=== PATIENT | male | born 1955 | race African-American/Black ===

== ENCOUNTER 2021-08-14 17:04 | Inpatient (IN) | payer MEDICARE, OTHER ==
[~2021-08-14] VITALS: Ht 182.9 cm; Wt 89.8 kg
[2021-08-14] MEDS ORDERED: MIDAZOLAM HCL 100 MG in DEXT 5% WATER 80 ML IV ONE (17:30)
[2021-08-14] MEDS ORDERED: SODIUM CHLORIDE 0.9% 1000ML BAG (SEPSIS BOLUS) IV ONE (17:30)
[2021-08-14] MEDS ORDERED: FENTANYL 2500MCG/250ML PMX 250 ML IV ONE ×2 (17:30→18:00)
[2021-08-14] MEDS ORDERED: ETOMIDATE 2MG/ML 10ML VIAL IV ONE (17:30)
[2021-08-14 17:50] LABS: BASOPHILS % 0.2 % (0.0-2.0); EOSINOPHILS % 0.9 % (0.0-5.0); HEMATOCRIT. 38.6 % (42.0-52.0); HEMOGLOBIN. 12.6 g/dL (14.0-18.0); LYMPHOCYTES % 27.8 % (20.0-50.0); MEAN CORPUSCULAR HEMOGLOBIN 32.2 pg (28.0-32.0); MEAN CORPUSCULAR VOLUME 98.5 fL (80.0-94.0); MEAN PLATELET VOLUME 9.2 fl (7.4-10.4); MONOCYTES % 5.9 % (2.0-8.0); NEUTROPHILS % 65.2 % (40.0-76.0); PLATELET 219 x1000/uL (130-400); RED BLOOD CELL COUNT 3.92 mill/uL (4.7-6.1); RED CELL DISTRIBUTION WIDTH 15.1 % (11.6-14.6)
[2021-08-14 17:54] LABS: CHLORIDE 110 mEq/L (98-107)
[2021-08-14] MEDS ORDERED: MIDAZOLAM HCL 100 MG in SODIUM CHLORIDE 0.9% 80 ML IV ONE (18:00)
[2021-08-14 18:02] LABS: CREATINE KINASE 115 IU/L (39-308)
[2021-08-14 18:11] LABS: CLARITY URINE CLOUDY (CLEAR); COLOR URINE DARK YELLOW (YELLOW); KETONES URINE TRACE (NEGATIVE); LEUKOCYTE ESTERASE URINE 2+ (NEGATIVE); NITRITE URINE NEGATIVE (NEGATIVE); OCCULT BLOOD URINE 2+ (NEGATIVE); PH URINE 5.5 (4.5-8.0); PROTEIN URINE 3+ (NEGATIVE); SPECIFIC GRAVITY URINE 1.024 (1.005-1.030)
[2021-08-14 21:09] LABS: *BARBITURATES SCREEN URINE NEGATIVE (NEGATIVE); *BENZODIAZEPINES SCREEN URINE NEGATIVE (NEGATIVE); *COCAINE SCREEN URINE NEGATIVE (NEGATIVE)
[2021-08-14 21:10] LABS: *AMPHETAMINES SCREEN URINE NEGATIVE (NEGATIVE); CANNABINOID URINE SCREEN NEGATIVE (NEGATIVE); METHADONE URINE SCREEN NEGATIVE (NEGATIVE); OPIATES URINE SCREEN NEGATIVE (NEGATIVE); PHENCYCLIDINE URINE SCREEN PRESUMTIVE POSITIVE (NEGATIVE)
[2021-08-14] MEDS ORDERED: ONDANSETRON HCL 4MG/2ML INJ IV PRN (22:00)
[2021-08-14] MEDS ORDERED: HYDROCODONE/ACETAMINOPHEN 5/325MG TABLET PO PRN (22:00)
[2021-08-14] MEDS ORDERED: LORAZEPAM 2MG/ML CPJ IV PRN (22:00)
[2021-08-14] MEDS ORDERED: DEXTROSE 50% WATER 50ML SYRINGE IV PRN (22:00)
[2021-08-14] MEDS ORDERED: CLONIDINE 0.1MG TABLET PO PRN (22:00)
[2021-08-14] MEDS ORDERED: GUAIFENESIN 200MG/10ML SUGAR FREE UDC PO PRN (22:00)
[2021-08-14] MEDS ORDERED: ACETAMINOPHEN 325MG TABLET PO PRN ×2 (22:00)
[2021-08-14] MEDS ORDERED: MAGNESIUM/ALUMINUM HYDROXIDE/SIMETHICONE 30ML UDC PO PRN (22:00)
[2021-08-14] MEDS ORDERED: IPRATROPIUM/ALBUTEROL 0.5-3(2.5)MG/3ML NEB NEB PRN (22:00)
[2021-08-15] VITALS (70 sets, daily range): BP systolic 111–162; BP diastolic 51–95
[2021-08-15] MEDS: ENOXAPARIN 30MG/0.3ML SYR SUBCUT SCH ×2 (02:29→21:44)
[2021-08-15] MEDS: SODIUM CHLORIDE 0.45% 1,000 ML IV SCH ×3 (02:29→18:16)
[2021-08-15] MEDS ORDERED: MIDAZOLAM 100MG/100ML PMX 100 ML IV PRN (03:45)
[2021-08-15] MEDS: MIDAZOLAM HCL 100 MG in SODIUM CHLORIDE 0.9% 100 ML IV PRN (04:31)
[2021-08-15 06:08] LABS: PHOSPHORUS 3.4 mg/dL (2.5-4.9)
[2021-08-15 06:30] LABS: FOLIC ACID (FOLATE) SERUM > 20.00 ng/mL (>5.38); VITAMIN B12 SERUM 378 pg/mL (211-911)
[2021-08-15 07:05] LABS: FERRITIN 116 ng/mL (22-322)
[2021-08-15] MEDS: BLOOD SUGAR DIAGNOSTIC STRIP TEST SCH ×3 (07:53→18:15)
[2021-08-15] MEDS: INSULIN LISPRO 100 UNITS/ML SUBCUT SCH ×3 (07:53→18:15)
[2021-08-15 09:11] LABS: BASOPHILS % 0.3 % (0.0-2.0); EOSINOPHILS % 0.2 % (0.0-5.0); HEMATOCRIT. 35.7 % (42.0-52.0); HEMOGLOBIN. 11.6 g/dL (14.0-18.0); LYMPHOCYTES % 9.5 % (20.0-50.0); MEAN CORPUSCULAR HEMOGLOBIN 32.3 pg (28.0-32.0); MEAN CORPUSCULAR VOLUME 99.6 fL (80.0-94.0); MEAN PLATELET VOLUME 8.6 fl (7.4-10.4); MONOCYTES % 10.3 % (2.0-8.0); NEUTROPHILS % 79.7 % (40.0-76.0); RED BLOOD CELL COUNT 3.59 mill/uL (4.7-6.1); RED CELL DISTRIBUTION WIDTH 15.4 % (11.6-14.6)
[2021-08-15 09:14] LABS: PLATELET 139 x1000/uL (130-400)
[2021-08-15 10:07] LABS: BG BASE EXCESS -1.3 mmol/L (-2.0-2.0); BG CARBOXYHEMOGLOBIN 0.3 % (0.5-1.5); BG FRACTION INSPIRED OXYGEN 100; BG HCO3 ACT 24.1 mmol/L (22.0-26.0); BG OXYHEMOGLOBIN 97.7 % (94.0-97.0); BG PCO2 42.7 mmHg (35.0-45.0); BG PEEP (cmH2O) 0 cmH2O; BG PH 7.369 (7.350-7.450); BG PO2 187.5 mmHg (75.0-100.0); BG SAMPLE SITE RIGHT BRACHIAL; BG TOTAL HEMOGLOBIN 12.5 g/dL (12.0-18.0); BG VENT MODE VENT - AC
[2021-08-15 10:32] LABS: BG BASE EXCESS -3.4 mmol/L (-2.0-2.0); BG CARBOXYHEMOGLOBIN 1.4 % (0.5-1.5); BG DEOXYHEMOGLOBIN 16.5 % (0.0-5.0); BG FRACTION INSPIRED OXYGEN 100; BG HCO3 ACT 24.1 mmol/L (22.0-26.0); BG METHEMOGLOBIN 0.4 % (0.0-1.5); BG OXYGEN SATURATION 83.2 % (92.0-98.5); BG OXYHEMOGLOBIN 81.7 % (94.0-97.0); BG PCO2 53.6 mmHg (35.0-45.0); BG PH 7.271 (7.350-7.450); BG PO2 56.3 mmHg (75.0-100.0); BG SAMPLE SITE RIGHT RADIAL; BG TOTAL HEMOGLOBIN 13.2 g/dL (12.0-18.0); BG VENT MODE VENT - AC
[2021-08-15] MEDS ORDERED: CEFTRIAXONE 1 G PREMIX 50 ML IV SCH (12:00)
[2021-08-15 12:06] LABS: BG BASE EXCESS -0.4 mmol/L (-2.0-2.0); BG CARBOXYHEMOGLOBIN 0.5 % (0.5-1.5); BG DEOXYHEMOGLOBIN 1.6 % (0.0-5.0); BG FRACTION INSPIRED OXYGEN 60; BG HCO3 ACT 24.2 mmol/L (22.0-26.0); BG METHEMOGLOBIN 0.3 % (0.0-1.5); BG OXYGEN SATURATION 98.4 % (92.0-98.5); BG OXYHEMOGLOBIN 97.6 % (94.0-97.0); BG PCO2 39.7 mmHg (35.0-45.0); BG PH 7.403 (7.350-7.450); BG PO2 116.3 mmHg (75.0-100.0); BG SAMPLE SITE RIGHT BRACHIAL; BG VENT MODE VENT - AC
[2021-08-15] MEDS: CEFTRIAXONE 1,000 MG in DEXTROSE 5% WATER 50 ML IV SCH (13:43)
[2021-08-15] MEDS ORDERED: VANCOMYCIN 1,750 MG in DEXT 5% WATER 500 ML IV NR (15:00)
[2021-08-15] MEDS: IPRATROPIUM/ALBUTEROL 0.5-3(2.5)MG/3ML NEB HHN SCH ×2 (16:02→19:53)
[2021-08-15] MEDS ORDERED: NALOXONE HCL 0.4MG/ML VIAL IV PRN (17:00)
[2021-08-15] MEDS ORDERED: DEXTROSE 50% WATER 50ML SYRINGE IV PRN (20:15)
[2021-08-15] MEDS: FAMOTIDINE 20MG TABLET PO SCH (21:44)
[2021-08-15] MEDS ORDERED: HEPARIN 80 UNITS/KG BOLUS IV SCH (22:30)
[2021-08-15] MEDS ORDERED: HEPARIN BOLUS PRN aPTT <36 IV (23:45)
[2021-08-15] MEDS ORDERED: HEPARIN BOLUS PRN aPTT 37-44 IV (23:45)
[2021-08-16] VITALS (60 sets, daily range): BP systolic 98–168; BP diastolic 40–93
[2021-08-16] MEDS ORDERED: BLOOD SUGAR DIAGNOSTIC STRIP TEST SCH
[2021-08-16] MEDS: IPRATROPIUM/ALBUTEROL 0.5-3(2.5)MG/3ML NEB HHN SCH ×6 (00:05→20:57)
[2021-08-16] MEDS: HEPARIN 25,000 UNITS in DEXT 5% WATER 245 ML IV SCH ×2 (00:29→20:59)
[2021-08-16] MEDS: INSULIN LISPRO 100 UNITS/ML SUBCUT SCH ×4 (05:09→18:00)
[2021-08-16] MEDS: BLOOD SUGAR DIAGNOSTIC STRIP TEST SCH ×5 (05:10→23:39)
[2021-08-16] MEDS: SODIUM CHLORIDE 0.45% 1,000 ML IV SCH ×2 (05:14→15:02)
[2021-08-16 06:15] LABS: BASOPHILS % 0.5 % (0.0-2.0); EOSINOPHILS % 0.7 % (0.0-5.0); HEMATOCRIT. 32.2 % (42.0-52.0); HEMOGLOBIN. 10.6 g/dL (14.0-18.0); LYMPHOCYTES % 14.6 % (20.0-50.0); MEAN CORPUSCULAR HEMOGLOBIN 32.6 pg (28.0-32.0); MEAN CORPUSCULAR VOLUME 98.7 fL (80.0-94.0); NEUTROPHILS % 76.2 % (40.0-76.0); PLATELET 129 x1000/uL (130-400); RED BLOOD CELL COUNT 3.26 mill/uL (4.7-6.1); RED CELL DISTRIBUTION WIDTH 15.1 % (11.6-14.6)
[2021-08-16 09:40] LABS: BG BASE EXCESS -0.2 mmol/L (-2.0-2.0); BG CARBOXYHEMOGLOBIN 0.3 % (0.5-1.5); BG DEOXYHEMOGLOBIN 1.8 % (0.0-5.0); BG FRACTION INSPIRED OXYGEN 60; BG HCO3 ACT 26.1 mmol/L (22.0-26.0); BG METHEMOGLOBIN 0.3 % (0.0-1.5); BG OXYGEN SATURATION 98.2 % (92.0-98.5); BG OXYHEMOGLOBIN 97.6 % (94.0-97.0); BG PCO2 50.2 mmHg (35.0-45.0); BG PH 7.334 (7.350-7.450); BG PO2 117.3 mmHg (75.0-100.0); BG SAMPLE SITE LEFT RADIAL; BG TOTAL HEMOGLOBIN 11.5 g/dL (12.0-18.0); BG VENT MODE VENT - AC
[2021-08-16] MEDS: MIDAZOLAM HCL 100 MG in SODIUM CHLORIDE 0.9% 100 ML IV PRN (09:52)
[2021-08-16] MEDS: CEFTRIAXONE 1,000 MG in DEXTROSE 5% WATER 50 ML IV SCH (12:47)
[2021-08-16] MEDS: VANCOMYCIN 1,000 MG in DEXT 5% WATER 250 ML IV SCH ×2 (13:47→21:42)
[2021-08-16] MEDS: FENTANYL 2500MCG/250ML PMX 250 ML IV PRN (17:23)
[2021-08-16 17:39] LABS: CLARITY URINE TURBID (CLEAR); COLOR URINE YELLOW (YELLOW); KETONES URINE NEGATIVE (NEGATIVE); LEUKOCYTE ESTERASE URINE NEGATIVE (NEGATIVE); NITRITE URINE NEGATIVE (NEGATIVE); OCCULT BLOOD URINE 2+ (NEGATIVE); PH URINE 5.5 (4.5-8.0); PROTEIN URINE 2+ (NEGATIVE); SPECIFIC GRAVITY URINE 1.022 (1.005-1.030)
[2021-08-16] MEDS: FAMOTIDINE 20MG TABLET PO SCH (20:58)
[2021-08-17] VITALS (48 sets, daily range): BP systolic 101–162; BP diastolic 52–91
[2021-08-17] MEDS: INSULIN LISPRO 100 UNITS/ML SUBCUT SCH ×4 (00:05→17:58)
[2021-08-17] MEDS: IPRATROPIUM/ALBUTEROL 0.5-3(2.5)MG/3ML NEB HHN SCH ×7 (00:31→23:49)
[2021-08-17 05:40] LABS: BASOPHILS % 0.3 % (0.0-2.0); EOSINOPHILS % 1.6 % (0.0-5.0); HEMATOCRIT. 29.6 % (42.0-52.0); HEMOGLOBIN. 9.9 g/dL (14.0-18.0); LYMPHOCYTES % 20.4 % (20.0-50.0); MEAN CORPUSCULAR HEMOGLOBIN 32.7 pg (28.0-32.0); MEAN CORPUSCULAR VOLUME 98.5 fL (80.0-94.0); MEAN PLATELET VOLUME 8.9 fl (7.4-10.4); MONOCYTES % 10.7 % (2.0-8.0); PLATELET 102 x1000/uL (130-400); RED BLOOD CELL COUNT 3.01 mill/uL (4.7-6.1); RED CELL DISTRIBUTION WIDTH 14.7 % (11.6-14.6)
[2021-08-17 05:46] LABS: CHLORIDE 107 mEq/L (98-107)
[2021-08-17 05:58] LABS: PHOSPHORUS 3.1 mg/dL (2.5-4.9)
[2021-08-17] MEDS: BLOOD SUGAR DIAGNOSTIC STRIP TEST SCH ×3 (06:35→17:58)
[2021-08-17 08:19] LABS: BG CARBOXYHEMOGLOBIN 0.3 % (0.5-1.5); BG DEOXYHEMOGLOBIN 2.8 % (0.0-5.0); BG FRACTION INSPIRED OXYGEN 50; BG HCO3 ACT 21.5 mmol/L (22.0-26.0); BG METHEMOGLOBIN 0.1 % (0.0-1.5); BG OXYGEN SATURATION 97.2 % (92.0-98.5); BG OXYHEMOGLOBIN 96.8 % (94.0-97.0); BG PCO2 40.6 mmHg (35.0-45.0); BG PH 7.341 (7.350-7.450); BG PO2 95.9 mmHg (75.0-100.0); BG SAMPLE SITE LEFT RADIAL; BG TOTAL HEMOGLOBIN 10.8 g/dL (12.0-18.0); BG VENT MODE VENT - AC
[2021-08-17] MEDS: VANCOMYCIN 1,000 MG in DEXT 5% WATER 250 ML IV SCH (08:49)
[2021-08-17] MEDS: MIDAZOLAM HCL 100 MG in SODIUM CHLORIDE 0.9% 100 ML IV PRN (08:50)
[2021-08-17] MEDS: SODIUM CHLORIDE 0.45% 1,000 ML IV SCH (10:12)
[2021-08-17] MEDS: CEFTRIAXONE 1,000 MG in DEXTROSE 5% WATER 50 ML IV SCH (13:02)
[2021-08-17] MEDS ORDERED: ATROPINE SULFATE 1MG/10ML SYR IV PRN (17:45)
[2021-08-17] MEDS: HEPARIN 25,000 UNITS in DEXT 5% WATER 245 ML IV SCH (18:00)
[2021-08-17] MEDS: FAMOTIDINE 20MG TABLET PO SCH (21:02)
[2021-08-18] VITALS (55 sets, daily range): BP systolic 68–147; BP diastolic 50–77
[2021-08-18] MEDS: IPRATROPIUM/ALBUTEROL 0.5-3(2.5)MG/3ML NEB HHN SCH ×5 (03:48→20:39)
[2021-08-18] MEDS: SODIUM CHLORIDE 0.45% 1,000 ML IV SCH (05:05)
[2021-08-18] MEDS: BLOOD SUGAR DIAGNOSTIC STRIP TEST SCH ×4 (05:09→18:00)
[2021-08-18] MEDS: FENTANYL 2500MCG/250ML PMX 250 ML IV PRN (05:11)
[2021-08-18] MEDS: INSULIN LISPRO 100 UNITS/ML SUBCUT SCH ×4 (06:00→18:00)
[2021-08-18] MEDS ORDERED: VANCOMYCIN 1,000 MG in DEXT 5% WATER 250 ML IV SCH ×2 (06:00→21:00)
[2021-08-18] MEDS: DEXTROSE 50% WATER 50ML SYRINGE IV PRN (07:35)
[2021-08-18 08:04] LABS: CHLORIDE 107 mEq/L (98-107)
[2021-08-18 08:07] LABS: BASOPHILS % 0.4 % (0.0-2.0); EOSINOPHILS % 2.9 % (0.0-5.0); HEMATOCRIT. 33.6 % (42.0-52.0); HEMOGLOBIN. 10.7 g/dL (14.0-18.0); LYMPHOCYTES % 19.6 % (20.0-50.0); MEAN CORPUSCULAR HEMOGLOBIN 32.2 pg (28.0-32.0); MEAN CORPUSCULAR VOLUME 100.8 fL (80.0-94.0); MEAN PLATELET VOLUME 10.1 fl (7.4-10.4); MONOCYTES % 10.6 % (2.0-8.0); NEUTROPHILS % 66.5 % (40.0-76.0); PLATELET 139 x1000/uL (130-400); RED BLOOD CELL COUNT 3.34 mill/uL (4.7-6.1); RED CELL DISTRIBUTION WIDTH 15.2 % (11.6-14.6)
[2021-08-18 08:10] LABS: *CREATININE RANDOM URINE 168.5 mg/dL (Not Estab.); MICROALBUMIN RANDOM URINE 151.8 ug/mL (Not Estab.)
[2021-08-18 08:45] LABS: BG BASE EXCESS 0.2 mmol/L (-2.0-2.0); BG CARBOXYHEMOGLOBIN 0.3 % (0.5-1.5); BG DEOXYHEMOGLOBIN 2.5 % (0.0-5.0); BG FRACTION INSPIRED OXYGEN 100; BG HCO3 ACT 27.1 mmol/L (22.0-26.0); BG METHEMOGLOBIN 0.1 % (0.0-1.5); BG OXYGEN SATURATION 97.5 % (92.0-98.5); BG OXYHEMOGLOBIN 97.1 % (94.0-97.0); BG PCO2 54.9 mmHg (35.0-45.0); BG PH 7.312 (7.350-7.450); BG PO2 105.9 mmHg (75.0-100.0); BG SAMPLE SITE RIGHT RADIAL; BG TOTAL HEMOGLOBIN 11.2 g/dL (12.0-18.0); BG VENT MODE VENT - AC
[2021-08-18] MEDS ORDERED: FUROSEMIDE 40MG/4ML VIAL IVP NR (11:15)
[2021-08-18] MEDS: CEFTRIAXONE 1,000 MG in DEXTROSE 5% WATER 50 ML IV SCH (13:58)
[2021-08-18] MEDS: ENOXAPARIN 100MG/ML SYR SUBCUT SCH (18:23)
[2021-08-18] MEDS: FAMOTIDINE 20MG TABLET PO SCH (21:08)
[2021-08-19] VITALS (82 sets, daily range): BP systolic 109–192; BP diastolic 39–117
[2021-08-19] MEDS: IPRATROPIUM/ALBUTEROL 0.5-3(2.5)MG/3ML NEB HHN SCH ×6 (00:33→20:08)
[2021-08-19] MEDS: BLOOD SUGAR DIAGNOSTIC STRIP TEST SCH ×5 (00:36→23:58)
[2021-08-19] MEDS: DEXTROSE 50% WATER 50ML SYRINGE IV PRN ×2 (00:37→18:22)
[2021-08-19] MEDS: MIDAZOLAM HCL 100 MG in SODIUM CHLORIDE 0.9% 100 ML IV PRN (03:54)
[2021-08-19] MEDS: INSULIN LISPRO 100 UNITS/ML SUBCUT SCH ×5 (06:00→23:59)
[2021-08-19 06:15] LABS: CHLORIDE 106 mEq/L (98-107)
[2021-08-19] MEDS: ENOXAPARIN 100MG/ML SYR SUBCUT SCH ×2 (06:15→18:23)
[2021-08-19 08:18] LABS: BG BASE EXCESS 0.2 mmol/L (-2.0-2.0); BG CARBOXYHEMOGLOBIN 0.4 % (0.5-1.5); BG DEOXYHEMOGLOBIN 5.2 % (0.0-5.0); BG FRACTION INSPIRED OXYGEN 40; BG HCO3 ACT 24.4 mmol/L (22.0-26.0); BG OXYGEN SATURATION 94.8 % (92.0-98.5); BG OXYHEMOGLOBIN 94.4 % (94.0-97.0); BG PH 7.426 (7.350-7.450); BG PO2 76.8 mmHg (75.0-100.0); BG SAMPLE SITE RIGHT RADIAL; BG TOTAL HEMOGLOBIN 12.4 g/dL (12.0-18.0); BG VENT MODE VENT - AC
[2021-08-19] MEDS: RISPERIDONE 0.5MG TABLET PO SCH (09:13)
[2021-08-19 12:08] LABS: BG BASE EXCESS 4.8 mmol/L (-2.0-2.0); BG CARBOXYHEMOGLOBIN 0.3 % (0.5-1.5); BG DEOXYHEMOGLOBIN 2.6 % (0.0-5.0); BG FRACTION INSPIRED OXYGEN 40; BG HCO3 ACT 30.1 mmol/L (22.0-26.0); BG METHEMOGLOBIN 0.1 % (0.0-1.5); BG OXYGEN SATURATION 97.4 % (92.0-98.5); BG PCO2 47.4 mmHg (35.0-45.0); BG PO2 100.2 mmHg (75.0-100.0); BG SAMPLE SITE RIGHT RADIAL; BG TOTAL HEMOGLOBIN 11.6 g/dL (12.0-18.0); BG VENT MODE VENT - CPAP
[2021-08-19] MEDS: CEFTRIAXONE 1,000 MG in DEXTROSE 5% WATER 50 ML IV SCH (12:49)
[2021-08-19] MEDS: HYDRALAZINE 20MG/ML VIAL IV PRN ×2 (17:07→21:50)
[2021-08-19] MEDS: FAMOTIDINE 20MG TABLET PO SCH (21:44)
[2021-08-20] VITALS (26 sets, daily range): BP systolic 127–176; BP diastolic 66–110
[2021-08-20] MEDS: IPRATROPIUM/ALBUTEROL 0.5-3(2.5)MG/3ML NEB HHN SCH ×7 (04:00→23:57)
[2021-08-20] MEDS: INSULIN LISPRO 100 UNITS/ML SUBCUT SCH ×4 (05:50→21:15)
[2021-08-20] MEDS: BLOOD SUGAR DIAGNOSTIC STRIP TEST SCH ×4 (05:51→21:28)
[2021-08-20] MEDS: ENOXAPARIN 100MG/ML SYR SUBCUT SCH ×2 (05:51→18:00)
[2021-08-20 05:55] LABS: CHLORIDE 107 mEq/L (98-107)
[2021-08-20 05:58] LABS: BASOPHILS % 0.3 % (0.0-2.0); HEMATOCRIT. 36.1 % (42.0-52.0); HEMOGLOBIN. 12.2 g/dL (14.0-18.0); LYMPHOCYTES % 12.7 % (20.0-50.0); MEAN CORPUSCULAR VOLUME 97.4 fL (80.0-94.0); MEAN PLATELET VOLUME 9.7 fl (7.4-10.4); PLATELET 202 x1000/uL (130-400); RED CELL DISTRIBUTION WIDTH 14.6 % (11.6-14.6)
[2021-08-20 06:05] LABS: PHOSPHORUS 3.8 mg/dL (2.5-4.9)
[2021-08-20 09:12] LABS: BASOPHILS % 0.5 % (0.0-2.0); EOSINOPHILS % 1.2 % (0.0-5.0); HEMATOCRIT. 36.8 % (42.0-52.0); HEMOGLOBIN. 12.2 g/dL (14.0-18.0); LYMPHOCYTES % 14.1 % (20.0-50.0); MEAN CORPUSCULAR HEMOGLOBIN 32.2 pg (28.0-32.0); MEAN CORPUSCULAR VOLUME 97.3 fL (80.0-94.0); MEAN PLATELET VOLUME 9.9 fl (7.4-10.4); MONOCYTES % 10.1 % (2.0-8.0); NEUTROPHILS % 74.1 % (40.0-76.0); PLATELET 206 x1000/uL (130-400); RED BLOOD CELL COUNT 3.78 mill/uL (4.7-6.1); RED CELL DISTRIBUTION WIDTH 14.5 % (11.6-14.6)
[2021-08-20 09:26] LABS: CHLORIDE 106 mEq/L (98-107)
[2021-08-20] MEDS: RISPERIDONE 0.5MG TABLET PO SCH (09:57)
[2021-08-20] MEDS: CEFTRIAXONE 1,000 MG in DEXTROSE 5% WATER 50 ML IV SCH (13:49)
[2021-08-20] MEDS: VANCOMYCIN 1.25GM PMX (XELLIA) 250 ML IV SCH (13:50)
[2021-08-20] MEDS: FAMOTIDINE 20MG TABLET PO SCH (21:28)
[2021-08-21] VITALS (10 sets, daily range): BP systolic 119–160; BP diastolic 64–97
[2021-08-21] MEDS: IPRATROPIUM/ALBUTEROL 0.5-3(2.5)MG/3ML NEB HHN SCH ×5 (04:02→20:00)
[2021-08-21] MEDS: ENOXAPARIN 100MG/ML SYR SUBCUT SCH ×2 (06:00→15:15)
[2021-08-21] MEDS: VANCOMYCIN 1.25GM PMX (XELLIA) 250 ML IV SCH (06:00)
[2021-08-21] MEDS: BLOOD SUGAR DIAGNOSTIC STRIP TEST SCH ×4 (06:35→20:34)
[2021-08-21] MEDS: INSULIN LISPRO 100 UNITS/ML SUBCUT SCH ×4 (06:35→20:34)
[2021-08-21] MEDS: RISPERIDONE 0.5MG TABLET PO SCH (10:38)
[2021-08-21] MEDS ORDERED: LIDOCAINE HCL 2% JELLY 5ML TOP NR (15:00)
[2021-08-21] MEDS: CEFTRIAXONE 1,000 MG in DEXTROSE 5% WATER 50 ML IV SCH (15:14)
[2021-08-21 20:33] LABS: BASOPHILS % 0.6 % (0.0-2.0); EOSINOPHILS % 2.6 % (0.0-5.0); HEMATOCRIT. 35.7 % (42.0-52.0); HEMOGLOBIN. 11.7 g/dL (14.0-18.0); LYMPHOCYTES % 19.4 % (20.0-50.0); MEAN CORPUSCULAR HEMOGLOBIN 32.1 pg (28.0-32.0); MEAN CORPUSCULAR VOLUME 97.8 fL (80.0-94.0); MEAN PLATELET VOLUME 9.5 fl (7.4-10.4); MONOCYTES % 9.8 % (2.0-8.0); NEUTROPHILS % 67.6 % (40.0-76.0); PLATELET 250 x1000/uL (130-400); RED BLOOD CELL COUNT 3.65 mill/uL (4.7-6.1); RED CELL DISTRIBUTION WIDTH 14.5 % (11.6-14.6)
[2021-08-21] MEDS: FAMOTIDINE 20MG TABLET PO SCH (20:34)
[2021-08-21 20:51] LABS: CHLORIDE 108 mEq/L (98-107)
[2021-08-21 20:56] LABS: PHOSPHORUS 2.8 mg/dL (2.5-4.9)
[2021-08-22] VITALS: BP 112/74
[2021-08-22] MEDS: VANCOMYCIN 1.25GM PMX (XELLIA) 250 ML IV SCH ×2 (00:23→18:46)
[2021-08-22 04:00] VITALS: BP 135/76
[2021-08-22] MEDS: IPRATROPIUM/ALBUTEROL 0.5-3(2.5)MG/3ML NEB HHN SCH ×4 (04:00→23:50)
[2021-08-22] MEDS: ENOXAPARIN 100MG/ML SYR SUBCUT SCH ×2 (06:12→18:47)
[2021-08-22] MEDS: BLOOD SUGAR DIAGNOSTIC STRIP TEST SCH ×4 (06:23→21:25)
[2021-08-22] MEDS: INSULIN LISPRO 100 UNITS/ML SUBCUT SCH ×4 (06:23→21:00)
[2021-08-22 06:50] LABS: BASOPHILS % 0.8 % (0.0-2.0); HEMATOCRIT. 34.1 % (42.0-52.0); HEMOGLOBIN. 11.6 g/dL (14.0-18.0); LYMPHOCYTES % 21.2 % (20.0-50.0); MEAN CORPUSCULAR HEMOGLOBIN 32.9 pg (28.0-32.0); MEAN CORPUSCULAR VOLUME 96.4 fL (80.0-94.0); MEAN PLATELET VOLUME 9.3 fl (7.4-10.4); MONOCYTES % 11.7 % (2.0-8.0); NEUTROPHILS % 63.3 % (40.0-76.0); PLATELET 261 x1000/uL (130-400); RED BLOOD CELL COUNT 3.54 mill/uL (4.7-6.1); RED CELL DISTRIBUTION WIDTH 14.6 % (11.6-14.6)
[2021-08-22 07:25] LABS: CHLORIDE 111 mEq/L (98-107)
[2021-08-22 07:35] LABS: PHOSPHORUS 3.4 mg/dL (2.5-4.9)
[2021-08-22 08:00] VITALS: BP 131/67
[2021-08-22] MEDS: RISPERIDONE 0.5MG TABLET PO SCH (09:05)
[2021-08-22 12:00] VITALS: BP 137/67
[2021-08-22 16:00] VITALS: BP 110/68
[2021-08-22] MEDS ORDERED: XAR15 PO ×2 (16:58)
[2021-08-22] MEDS ORDERED: RIVA20TA PO ×2 (16:58)
[2021-08-22 20:00] VITALS: BP 150/78
[2021-08-22] MEDS: FAMOTIDINE 20MG TABLET PO SCH (21:25)
[2021-08-23] VITALS: BP 102/71
[2021-08-23 04:00] VITALS: BP 115/75
[2021-08-23] MEDS: IPRATROPIUM/ALBUTEROL 0.5-3(2.5)MG/3ML NEB HHN SCH ×4 (04:00→17:17)
[2021-08-23] MEDS: ENOXAPARIN 100MG/ML SYR SUBCUT SCH ×2 (06:30→17:12)
[2021-08-23] MEDS: INSULIN LISPRO 100 UNITS/ML SUBCUT SCH ×3 (07:20→17:11)
[2021-08-23 08:00] VITALS: BP 126/72
[2021-08-23] MEDS: RISPERIDONE 0.5MG TABLET PO SCH (08:48)
[2021-08-23 12:00] VITALS: BP 127/69
[2021-08-23] MEDS: VANCOMYCIN 1.25GM PMX (XELLIA) 250 ML IV SCH (12:00)
[2021-08-23 12:09] VITALS: BP 126/72
[2021-08-23 16:00] VITALS: BP 148/70
[2021-08-23] MEDS ORDERED: HYDRALAZINE 10 MG in SODIUM CHLORIDE 0.9% 49.5 ML IV PRN (18:30)
[2021-08-24] MEDS: FAMOTIDINE 20MG TABLET PO SCH ×2 (05:59→21:52)
[2021-08-24] MEDS: ENOXAPARIN 100MG/ML SYR SUBCUT SCH ×2 (06:00→17:25)
[2021-08-24] MEDS: VANCOMYCIN 1.25GM PMX (XELLIA) 250 ML IV SCH (06:00)
[2021-08-24 08:00] VITALS: BP 125/74
[2021-08-24] MEDS: IPRATROPIUM/ALBUTEROL 0.5-3(2.5)MG/3ML NEB HHN SCH ×7 (08:00→22:09)
[2021-08-24] MEDS: RISPERIDONE 0.5MG TABLET PO SCH (08:30)
[2021-08-24 12:00] VITALS: BP 123/84
[2021-08-24 16:00] VITALS: BP 144/75
[2021-08-24 16:16] LABS: BASOPHILS % 0.9 % (0.0-2.0); EOSINOPHILS % 3.4 % (0.0-5.0); HEMATOCRIT. 34.9 % (42.0-52.0); HEMOGLOBIN. 11.5 g/dL (14.0-18.0); LYMPHOCYTES % 23.2 % (20.0-50.0); MEAN CORPUSCULAR HEMOGLOBIN 32.1 pg (28.0-32.0); MEAN CORPUSCULAR VOLUME 97.5 fL (80.0-94.0); MONOCYTES % 9.3 % (2.0-8.0); NEUTROPHILS % 63.2 % (40.0-76.0); PLATELET 341 x1000/uL (130-400); RED BLOOD CELL COUNT 3.58 mill/uL (4.7-6.1); RED CELL DISTRIBUTION WIDTH 14.6 % (11.6-14.6)
[2021-08-24 16:24] LABS: CHLORIDE 110 mEq/L (98-107)
[2021-08-24 16:32] LABS: PHOSPHORUS 3.8 mg/dL (2.5-4.9)
[2021-08-24] MEDS ORDERED: VANCOMYCIN 1250MG in DEXTROSE 5% WATER 250ML IV SCH (19:00)
[2021-08-24 20:00] VITALS: BP 146/80
[2021-08-25] VITALS: BP 121/68
[2021-08-25] MEDS ORDERED: VANCOMYCIN 1250MG in DEXTROSE 5% WATER 250ML IV SCH ×2
[2021-08-25 04:00] VITALS: BP 156/72
[2021-08-25] MEDS: ENOXAPARIN 100MG/ML SYR SUBCUT SCH ×2 (07:14→17:35)
[2021-08-25] MEDS: IPRATROPIUM/ALBUTEROL 0.5-3(2.5)MG/3ML NEB HHN SCH ×2 (07:42→12:00)
[2021-08-25 08:00] VITALS: BP 153/80
[2021-08-25] MEDS: RISPERIDONE 0.5MG TABLET PO SCH (08:59)
[2021-08-25 12:00] VITALS: BP 145/76
[2021-08-25 16:00] VITALS: BP 143/75
[2021-08-25] MEDS ORDERED: VANCOMYCIN 1.25GM PMX (XELLIA) 250 ML IV SCH (18:00)
[2021-08-25 20:00] VITALS: BP 147/79
[2021-08-25] MEDS: FAMOTIDINE 20MG TABLET PO SCH (21:24)
[2021-08-26] VITALS: BP 153/83
[2021-08-26 04:00] VITALS: BP 114/91
[2021-08-26] MEDS: ENOXAPARIN 100MG/ML SYR SUBCUT SCH ×2 (05:31→17:13)
[2021-08-26 08:00] VITALS: BP 155/73
[2021-08-26] MEDS: RISPERIDONE 0.5MG TABLET PO SCH (08:05)
[2021-08-26 12:00] VITALS: BP 117/53
[2021-08-26] MEDS: FAMOTIDINE 20MG TABLET PO SCH (20:46)
[2021-08-27 04:00] VITALS: BP 133/74
[2021-08-27] MEDS: ENOXAPARIN 100MG/ML SYR SUBCUT SCH ×2 (06:00→18:00)
[2021-08-27 08:00] VITALS: BP 122/65
[2021-08-27] MEDS: RISPERIDONE 0.5MG TABLET PO SCH (09:55)
[2021-08-27 16:00] VITALS: BP 121/65
[2021-08-27 16:12] LABS: BASOPHILS % 0.4 % (0.0-2.0); HEMATOCRIT. 35.9 % (42.0-52.0); HEMOGLOBIN. 11.6 g/dL (14.0-18.0); LYMPHOCYTES % 22.1 % (20.0-50.0); MEAN CORPUSCULAR HEMOGLOBIN 31.5 pg (28.0-32.0); MEAN CORPUSCULAR VOLUME 97.2 fL (80.0-94.0); MEAN PLATELET VOLUME 8.3 fl (7.4-10.4); MONOCYTES % 6.2 % (2.0-8.0); NEUTROPHILS % 68.3 % (40.0-76.0); PLATELET 407 x1000/uL (130-400); RED BLOOD CELL COUNT 3.69 mill/uL (4.7-6.1); RED CELL DISTRIBUTION WIDTH 14.9 % (11.6-14.6)
[2021-08-27 16:29] LABS: CHLORIDE 111 mEq/L (98-107)
[2021-08-27 16:34] LABS: PHOSPHORUS 3.9 mg/dL (2.5-4.9)
[2021-08-27] MEDS: FAMOTIDINE 20MG TABLET PO SCH (22:56)
[2021-08-28] MEDS: ENOXAPARIN 100MG/ML SYR SUBCUT SCH (06:00)
[2021-08-28 08:00] VITALS: BP 107/52
[2021-08-28] MEDS ORDERED: RIVA20TA PO (09:50)
[2021-08-28] MEDS ORDERED: RISP05 PO (09:50)
[2021-08-28] MEDS ORDERED: XAR15 PO (09:50)
[2021-08-28] MEDS: RISPERIDONE 0.5MG TABLET PO SCH (10:08)
[2021-08-28 11:45] VITALS: BP 107/55
[2021-08-28 12:00] VITALS: BP 107/55
== END 2021-08-28 13:20 | DRG 720 ==
LOC: ER 17:04 → EDBD 17:04 → CVICU 20:10 → SUPCPDRO 20:12 → EDBEDREQ 21:51 → ENRESERV 23:37 → 6EST 08-21 03:40
PROVIDERS: ADMIT Internal Medicine; ATTEND Internal Medicine
PROC: 5A1955Z Respiratory Ventilation, Greater than 96 Consecutive Hours (ICD-10-PCS; principal; 2021-08-14)
PROC: 0BH17EZ Insertion of Endotracheal Airway into Trachea, Via Natural or Artificial Opening (ICD-10-PCS; 2021-08-14)
PROC: 02HV33Z Insertion of Infusion Device into Superior Vena Cava, Percutaneous Approach (ICD-10-PCS; 2021-08-15)
PROC: B548ZZA Ultrasonography of Superior Vena Cava, Guidance (ICD-10-PCS; 2021-08-15)
DX: A41.1 Sepsis due to other specified staphylococcus (principal); I26.99 Other pulmonary embolism without acute cor pulmonale; G92.8 Other toxic encephalopathy; J96.01 Acute respiratory failure with hypoxia; J96.02 Acute respiratory failure with hypercapnia; E44.0 Moderate protein-calorie malnutrition; E87.2 Acidosis; D69.6 Thrombocytopenia, unspecified; I82.413 Acute embolism and thrombosis of femoral vein, bilateral; T50.901A Poisoning by unspecified drugs, medicaments and biological substances, accidental (unintentional), initial encounter; R65.20 Severe sepsis without septic shock; N17.9 Acute kidney failure, unspecified; N39.0 Urinary tract infection, site not specified; Z20.822 Contact with and (suspected) exposure to COVID-19; F16.129 Hallucinogen abuse with intoxication, unspecified; D53.9 Nutritional anemia, unspecified; I27.20 Pulmonary hypertension, unspecified; I36.1 Nonrheumatic tricuspid (valve) insufficiency; K40.90 Unilateral inguinal hernia, without obstruction or gangrene, not specified as recurrent; N43.3 Hydrocele, unspecified; I10 Essential (primary) hypertension; Z59.00 Homelessness unspecified; Z78.1 Physical restraint status; Z68.26 Body mass index [BMI] 26.0-26.9, adult; Y92.89 Other specified places as the place of occurrence of the external cause; R77.8 Other specified abnormalities of plasma proteins; R00.1 Bradycardia, unspecified; F03.90 Unspecified dementia, unspecified severity, without behavioral disturbance, psychotic disturbance, mood disturbance, and anxiety; F25.9 Schizoaffective disorder, unspecified; S81.801A Unspecified open wound, right lower leg, initial encounter; S91.301A Unspecified open wound, right foot, initial encounter
CPT/HCPCS: 36415; 36600; 70551; 71045; 76770; 76870; 76937; 78580; 80048; 80053; 80202; 80305; 81003; 82043; 82375; 82550; 82570; 82607; 82728; 82746; 82805; 82962; 83036; 83540; 83550; 83605; 83735; 83935; 84100; 84145; 84300; 84443; 84484; 84540; 85025; 87070; 87077; 87186; 87426; 92610; 93005; 93306; 93923; 93970; 93976; 94002; 94003; 94640; 97165; 99291; C1725; C1769; J0360; J0696; J1644; J1650; J1815; J1940; J2060; J2250; J3010; J3370; J7030; J7050; J7060; A4315